=== PATIENT | female | born 1975 | race African-American/Black ===

== ENCOUNTER 2018-03-22 22:22 | Emergency (ER) | payer OTHER ==
[2018-03-23 00:08] LABS: Absolute Lymphocytes (CBC) 2.5 K/uL (0.7-4.9); Absolute Monocytes 0.8 K/uL (0.1-1.3); Basophils % 0.9 % (0-1.3); Eosinophils % 2.6 % (0-4.4); Hematocrit 37.8 % (36.0-45.0); Lymphocytes % 38.7 % (15.3-44.8); MCH 28.5 pg (27.0-35.0); MCV 88.9 fL (80-100); MPV 9.6 fL (7.6-11.3); Monocytes % 11.7 % (3.3-12.3); RBC Red Blood Cell Count 4.25 M/uL (3.86-4.86)
[2018-03-23 00:36] LABS: Bicarbonate 24 mEq/L (21-31); Glucose Level 104 mg/dL (65-120); Potassium 3.8 mEq/L (3.6-5.0); Sodium Level 138 mEq/L (135-145)
[2018-03-23 00:40] LABS: BUN Blood Urea Nitrogen 16 mg/dL (6-20); Uric Acid 4.7 mg/dL (2.6-8.0)
--- NOTE | 2018-03-23 02:12 | EDPHYS ---
Physician Documentation [facility] Name: Smitha Vasquez Age: 43 yrs Sex: Female : 1975 Arrival Date: 03/22/2018 Time: 22:23 Bed 20 Private MD: None, None ED Physician Simba Fatima HPI: 03/23 01:58 This 43 yrs old Black Female presents to ER via Ambulatory with complaints of Feet gs Swelling. 02:05 The complaints affect the right foot. Onset: The symptoms/episode began/occurred 1 gs week(s) ago, and became worse and became persistent. Modifying factors: the symptoms are aggravated by weight bearing. Associated signs and symptoms: Pertinent negatives: calf tenderness. Severity of symptoms: At their worst the symptoms were moderate, in the emergency department the symptoms are unchanged. The patient has not experienced similar symptoms in the past. The patient has not recently seen a physician. 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 - Social history:: Smoking status: Patient uses tobacco products, denies chronic smoking, but will smoke occasionally. - Ebola Screening: : No symptoms or risks identified at this time. ROS: 03/23 02:05 All other systems are negative. gs Exam: 02:05 Constitutional: The patient appears alert, awake. gs 02:05 Musculoskeletal/extremity: Extremities: noted in the dorsum of right foot: swelling, tenderness, ROM: no acute changes, Circulation is intact in all extremities. 02:05 Skin: Exam negative for 02:12 Musculoskeletal/extremity: DVT Exam: no pain, no swelling, no tenderness, negative gs Homans' sign noted on exam, no appreciated bluish discoloration, no erythema, no increased warmth, Calves: are non-tender, have equal circumference. Vital Signs: 03/22 22:46 BP 129 / 81; Pulse 77; Resp 18 S; Pulse Ox 98% on R/A; Weight 89.81 kg (R); Height 6 jd3 ft. 0 in. (182.88 cm) (R); Pain 7/10; 23:26 BP 108 / 61; Pulse 68; Resp 18 S; Pulse Ox 100% on R/A; Pain 7/10; d3 03/23 00:33 BP 120 / 80; Pulse 60; Resp 15 S; Pulse Ox 99% on R/A; Pain 7/10; jd3 01:38 BP 117 / 80; Pulse 64; Resp 18 S; Pulse Ox 98% on R/A; [facility] 03/22 22:46 Body Mass Index 26.85 (89.81 kg, 182.88 cm) [facility] MDM: 03/22 23:38 Patient medically screened. 03/23 02:05 Differential diagnosis: fracture, sprain, arthritis, gout, cellulitis. Data reviewed: vital signs, nurses notes. Response to treatment: the patient's symptoms have markedly improved after treatment, and as a result, I will discharge patient. ED course: skin is mild erythematous will cover for cellulitis, 3rd met fx to me is not a nutrient vessel. 03/22 23:38 Order name: CBC with Diff; Complete Time: 00:46 03/22 23:38 Order name: Basic Metabolic Panel; Complete Time: 00:46 03/22 23:38 Order name: Uric Acid; Complete Time: 00:46 03/22 23:38 Order name: Ankle Right 3 View XRAY 03/23 01:00 Order name: Foot Right 3 View XRAY 03/23 02:15 Order name: Post-op Orthopedic Shoe; Complete Time: 02:22 03/23 02:15 Order name: Olvin Wrap; Complete Time: 02:22 Administered Medications: No medications were administered Disposition: 03/23/18 02:12 Discharged to Home. Impression: Fracture of third metatarsal bone. - Condition is Stable. - Discharge Instructions: Metatarsal Fracture, Undisplaced. - Prescriptions for Keflex 500 mg Oral Capsule - take 1 capsule by ORAL route every 12 hours for 7 days; 14 capsule. - Medication Reconciliation Form, Thank You Letter, Antibiotic Education, Prescription Opioid Use form. - Follow up: Shorty Vides MD; When: 2 - 3 days; Reason: Re-evaluation by your physician. Signatures: Dispatcher [employer] EDNY Simba Fatima MD MD Booth, Grayson, RN RN jd3 Corrections: (The following items were deleted from the chart) 02:26 02:12 03/23/2018 02:12 Discharged to Home. Impression: Fracture of third metatarsal jd3 bone. Condition is Stable. Forms are Medication Reconciliation Form, Thank You Letter, Antibiotic Education, Prescription Opioid Use. Follow up: Dr. Shorty Vides; When: 2 - 3 days; Reason: Re-evaluation by your physician. gs
--- NOTE | 2018-03-23 02:12 | ER ---
Nurse's Notes [facility] Name: Smitha Vasquez Age: 43 yrs Sex: Female : 1975 Arrival Date: 03/22/2018 Time: 22:23 Bed 20 Private MD: None, None Diagnosis: Fracture of third metatarsal bone Presentation: 03/22 22:40 Presenting complaint: Patient states: "Both my legs/feet have been swelling since jd3 Sunday. Since then my left leg/foot swelling went down, bu my right leg/foot is still swollen and hurts to touch. I have history of a melanie placed in my left femur and I don't know if that has anything to do with it or not.". Transition of care: patient was not received from another setting of care. Onset of symptoms was March 20, 2018. Risk Assessment: Do you want to hurt yourself or someone else? Patient reports no desire to harm self or others. Initial Sepsis Screen: Does the patient meet any 2 criteria? No. Patient's initial sepsis screen is negative. Does the patient have a suspected source of infection? No. Patient's initial sepsis screen is negative. Care prior to arrival: None. 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 - Social history:: Smoking status: Patient uses tobacco products, denies chronic smoking, but will smoke occasionally. - Ebola Screening: : No symptoms or risks identified at this time. Screenin:50 Abuse screen: Denies threats or abuse. Nutritional screening: No deficits noted. jd3 Tuberculosis screening: No symptoms or risk factors identified. Fall Risk Gait- Normal/Bed Rest/Wheelchair (0 pts) Mental Status- Oriented to own ability (0 pts). Total Garnica Fall Scale indicates No Risk (0-24 pts). Assessment: 22:48 General: Appears in no apparent distress. uncomfortable, Behavior is calm, cooperative, jd3 appropriate for age. Pain: Complains of pain in right foot and right leg Pain currently is 7 out of 10 on a pain scale. Quality of pain is described as aching, pressure. Neuro: Level of Consciousness is awake, alert, obeys commands, Oriented to person, place, time, situation. Cardiovascular: Heart tones S1 S2 present Capillary refill < 3 seconds Patient's skin is warm and dry. Pulses are palpable in right dorsalis pedis artery and left dorsalis pedis artery. Respiratory: Airway is patent Respiratory effort is even, unlabored, Respiratory pattern is regular, symmetrical, Breath sounds are clear bilaterally. GI: Abdomen is round Bowel sounds present X 4 quads. Abd is soft and non tender X 4 quads. Patient currently denies nausea, vomiting. : No signs and/or symptoms were reported regarding the genitourinary system. EENT: No signs and/or symptoms were reported regarding the EENT system. Derm: Skin is intact, Skin is dry, Skin is normal, Skin temperature is warm. Musculoskeletal: Circulation, motion, and sensation intact. Range of motion: intact in all extremities, Swelling present in right foot and right leg. 23:27 Reassessment: Patient appears in no apparent distress at this time. Patient and/or jd3 family updated on plan of care and expected duration. Pain level reassessed. Patient is alert, oriented x 3, equal unlabored respirations, skin warm/dry/pink. waiting on provider to see pt. 03/23 00:34 Reassessment: Patient appears in no apparent distress at this time. No changes from jd3 previously documented assessment. Patient and/or family updated on plan of care and expected duration. Pain level reassessed. Patient is alert, oriented x 3, equal unlabored respirations, skin warm/dry/pink. 01:39 Reassessment: Patient appears in no apparent distress at this time. Patient and/or jd3 family updated on plan of care and expected duration. Pain level reassessed. Patient is alert, oriented x 3, equal unlabored respirations, skin warm/dry/pink. provider at bedside discussing plan of care. 02:24 Reassessment: Patient appears in no apparent distress at this time. Patient and/or jd3 family updated on plan of care and expected duration. Pain level reassessed. Patient is alert, oriented x 3, equal unlabored respirations, skin warm/dry/pink. pt reported understanding of discharge instructions, even and steady gait upon discharge. Patient states feeling better. Vital Signs: 03/22 22:46 BP 129 / 81; Pulse 77; Resp 18 S; Pulse Ox 98% on R/A; Weight 89.81 kg (R); Height 6 jd3 ft. 0 in. (182.88 cm) (R); Pain 7/10; 23:26 BP 108 / 61; Pulse 68; Resp 18 S; Pulse Ox 100% on R/A; Pain 7/10; jd3 03/23 00:33 BP 120 / 80; Pulse 60; Resp 15 S; Pulse Ox 99% on R/A; Pain 7/10; jd3 01:38 BP 117 / 80; Pulse 64; Resp 18 S; Pulse Ox 98% on R/A; jd3 03/22 22:46 Body Mass Index 26.85 (89.81 kg, 182.88 cm) jd3 ED Course: 03/22 22:23 Patient arrived in ED. ds1 22:31 Grayson Booth RN is Primary Nurse. jd3 22:45 Simba Fatima MD is Attending Physician. gs 22:45 Triage completed. jd3 22:47 None, None is Private Physician. ds1 22:48 Arm band placed on. jd3 22:51 Patient has correct armband on for positive identification. Placed in gown. Bed in low jd3 position. Call light in reach. Side rails up X 1. 23:52 X-ray completed. Portable x-ray completed in exam room. Patient tolerated procedure jw2 well. 23:53 Ankle Right 3 View XRAY In Process Unspecified. EDMS 03/23 01:21 X-ray completed. Portable x-ray completed in exam room. Patient tolerated procedure jw2 well. 01:22 Foot Right 3 View XRAY In Process Unspecified. EDMS 02:10 Shorty Vides MD is Referral Physician. gs 02:23 No provider procedures requiring assistance completed. Patient did not have IV access jd3 during this emergency room visit. 02:25 Olvin wrap to right food Ortho shoe applied to right foot. jd3 Administered Medications: No medications were administered Outcome: 02:12 Discharge ordered by . gs 02:24 Discharged to home ambulatory, with family. jd3 02:24 Condition: stable 02:24 Discharge instructions given to patient, Instructed on discharge instructions, follow up and referral plans. medication usage, Demonstrated understanding of instructions, follow-up care, medications, Prescriptions given X 1. 02:26 Patient left the ED. jd3 Signatures: Dispatcher [employer] EDNC TedNydia1 Rimma Mancilla2 Simba Fatima MD MD gs Davies, Jonathon, RN RN jd3
[2018-03-23 02:34] VITALS: BP 117/80; O2SAT 98
--- NOTE | 2018-03-23 10:25 | RAD REPORT ---
EXAM DESCRIPTION: RAD - Foot Right 3 View - 03/23/2018 1:22 am CLINICAL HISTORY: Swelling and pain. COMPARISON: None. FINDINGS: Right ankle and right foot, multiple projections are submitted. Moderate soft tissue swelling is noted about ankle and foot. No acute fracture or dislocation is seen .
--- NOTE | 2018-03-25 09:02 | RAD REPORT ---
EXAM DESCRIPTION: RAD - Ankle Right 3 View - 03/22/2018 11:53 pm CLINICAL HISTORY: Swelling and pain. COMPARISON: None. FINDINGS: Right ankle and right foot, multiple projections are submitted. Moderate soft tissue swelling is noted about ankle and foot. No acute fracture or dislocation is seen .
== END 2018-03-23 02:26 | disposition home or self-care (01) ==
LOC: ER 22:22
DX: S92.331A Displaced fracture of third metatarsal bone, right foot, initial encounter for closed fracture (principal); X58.XXXA Exposure to other specified factors, initial encounter; Y93.9 Activity, unspecified; Y92.9 Unspecified place or not applicable; Z72.0 Tobacco use
CPT/HCPCS: 36415; 80048; 84550; 85025; 99283

== ENCOUNTER 2021-01-13 11:31 | Emergency (ER) | payer OTHER ==
--- OUTSIDE RECORDS SUMMARY | 2021-01-13 11:34 | XMS REPORT | Continuity of Care Document ---
:1975 Author Organization [facility] t Address [address] [place] [address] [place] [address] Care Team Providers Name Role Phone Unavailable Unavailable Unavailable Problems This patient has no known problems. Allergies, Adverse Reactions, Alerts This patient has no known allergies or adverse reactions. Medications This patient has no known medications. Procedures This patient has no known procedures. Results This patient has no known results.
--- NOTE | 2021-01-13 12:41 | EDPHYS ---
Physician Documentation [facility] Name: Smitha Vasquez Age: 45 yrs Sex: Female : 1975 Arrival Date: 01/13/2021 Time: 11:33 Bed 13 Private MD: ED Physician Elver Puente HPI: 01/13 12:41 This 45 yrs old Black Female presents to ER via Ambulatory with complaints of Ear Pain, jr8 Fever. 12:01 The patient presents with pain, that is acute. The complaints affect the left ear. jr8 Onset: The symptoms/episode began/occurred suddenly, today. Associated signs and symptoms: Pertinent positives: fever, rhinorrhea. Patient reports sudden onset of ear pain that started this morning at work at 730 AM. She started fever with rhinorrhea which she treated with Aleve. Work sent her home to be tested for COVID. Pt denies feeling bad but can tell she has a fever. . Historical: - Allergies: 11:48 No Known Allergies; ss - Home Meds: 11:48 None [Active]; ss - PMHx: 11:48 None; ss - PSHx: 11:48 right leg sx with melanie placement; ss - Immunization history:: Adult Immunizations up to date. - Social history:: Smoking status: Patient denies any tobacco usage or history of. ROS: 12:03 Eyes: Negative for injury, pain, redness, and discharge, Cardiovascular: Negative for jr8 chest pain, palpitations, and edema, Respiratory: Negative for shortness of breath, cough, wheezing, and pleuritic chest pain, Abdomen/GI: Negative for abdominal pain, nausea, vomiting, diarrhea, and constipation, : Negative for injury, bleeding, discharge, and swelling, Skin: Negative for injury, rash, and discoloration, Neuro: Negative for headache, weakness, numbness, tingling, and seizure. 12:03 Constitutional: Positive for fever. 12:03 ENT: Positive for ear pain, nasal discharge, Negative for sinus congestion, sore throat, difficulty swallowing, hoarseness. Exam: 12:04 Chest/axilla: Normal chest wall appearance and motion. Nontender with no deformity. jr8 No lesions are appreciated. Cardiovascular: Regular rate and rhythm with a normal S1 and S2. No gallops, murmurs, or rubs. Normal PMI, no JVD. No pulse deficits. Respiratory: Lungs have equal breath sounds bilaterally, clear to auscultation and percussion. No rales, rhonchi or wheezes noted. No increased work of breathing, no retractions or nasal flaring. Abdomen/GI: Soft, non-tender, with normal bowel sounds. No distension or tympany. No guarding or rebound. No evidence of tenderness throughout. Skin: Warm, dry with normal turgor. Normal color with no rashes, no lesions, and no evidence of cellulitis. MS/ Extremity: Pulses equal, no cyanosis. Neurovascular intact. Full, normal range of motion. 12:04 ENT: External ear(s): are unremarkable, Ear canal(s): erythema, effusion on L side, TM's: erythema, fluid levels, Posterior pharynx: erythema, that is mild. 12:04 Skin: Appearance: normal except for affected area, Warm to touch. 12:41 Neck: External neck: is normal, Thyroid: appears normal, Trachea: is midline with no jr8 obvious abnormalities, ROM/movement: pain, is not appreciated, limited range of motion, is not appreciated, Meningeal signs: are not present, Kernig's sign is negative, Brudzinski's sign is negative, Lymph nodes: lymphadenopathy is appreciated, anterior cervical nodes. Vital Signs: 11:45 BP 131 / 78; Pulse 88; Resp 16; Temp 99.7(TE); Pulse Ox 100% on R/A; Weight 104.33 kg; ss Height 6 ft. 0 in. (182.88 cm); Pain 8/10; 12:59 BP 138 / 78; Pulse 84; Resp 15; Pulse Ox 100% ; jl7 11:45 Body Mass Index 31.19 (104.33 kg, 182.88 cm) ss MDM: 11:49 Patient medically screened. jr8 12:06 Data reviewed: vital signs, nurses notes, lab test result(s). Data interpreted: Cardiac jr8 monitor: rate is 88 beats/min. Data interpreted: certified residential medication aide: Pulse oximetry: on room air is 100 %. Interpretation: normal. Test interpretation: by ED physician or midlevel provider:. 12:39 Counseling: I had a detailed discussion with the patient and/or guardian regarding: the jr8 historical points, exam findings, and any diagnostic results supporting the discharge/admit diagnosis, lab results, the need for outpatient follow up, a family practitioner, to return to the emergency department if symptoms worsen or persist or if there are any questions or concerns that arise at home. 14:33 ED course: Attempted to call pt twice to give results for COVID positive. No answer and jr8 no VM is set up. Will attempt again later. . 01/13 12:08 Order name: Strep jr8 01/13 12:09 Order name: Group A Streptococcus Rapid Sc EDNY Administered Medications: 12:38 Drug: Tylenol 650 mg Route: PO; jl7 12:58 Follow up: Response: No adverse reaction jl7 Disposition: 18:27 Co-signature as Attending Physician, Elver Puente MD I agree with the assessment and tw4 plan of care. Disposition: 01/13/21 12:40 Discharged to Home. Impression: Acute lymphadenitis of face, head and neck, Acute suppurative otitis media. - Condition is Stable. - Discharge Instructions: Otitis Media, Adult, Lymphadenopathy. - Prescriptions for Augmentin 875- 125 mg Oral Tablet - take 1 tablet by ORAL route every 12 hours for 10 days; 20 tablet. - Medication Reconciliation Form, Thank You Letter, Antibiotic Education, Prescription Opioid Use, Work release form form. - Follow up: Private Physician; When: 7 - 10 days; Reason: Recheck today's complaints, Continuance of care, Re-evaluation by your physician. - Problem is new. - Symptoms have improved. Signatures: Dispatcher [facility] Christina Barron RN RN ss Roszak, Josh, PA PA jr8 Liborio York RN RN jl7 Wadley, Terrence, MD MD tw4 Corrections: (The following items were deleted from the chart) 12:40 12:06 Data reviewed: vital signs, nurses notes, jr8 jr8 13:00 12:40 01/13/2021 12:40 Discharged to Home. Impression: Acute lymphadenitis of face, jl7 head and neck; Acute suppurative otitis media. Condition is Stable. Forms are Medication Reconciliation Form, Thank You Letter, Antibiotic Education, Prescription Opioid Use. Follow up: Private Physician; When: 7 - 10 days; Reason: Recheck today's complaints, Continuance of care, Re-evaluation by your physician. Problem is new. Symptoms have improved. jr8
--- NOTE | 2021-01-13 12:41 | ER ---
Nurse's Notes [facility] Name: Smitha Vasquez Age: 45 yrs Sex: Female : 1975 Arrival Date: 01/13/2021 Time: 11:33 Bed 13 Private MD: Diagnosis: Acute lymphadenitis of face, head and neck;Acute suppurative otitis media Presentation: 01/13 11:45 Chief complaint: Patient states: L ear pain that began today. Pt states she began to ss feel warm, so they checked her temp at work and said it was "borderline" and to come be evaluated. Coronavirus screen: Client denies travel out of the [place] in the last 14 days. Ebola Screen: Patient denies exposure to infectious person. Patient denies travel to an Ebola-affected area in the 21 days before illness onset. Initial Sepsis Screen: Does the patient meet any 2 criteria? No. Patient's initial sepsis screen is negative. Does the patient have a suspected source of infection? No. Patient's initial sepsis screen is negative. Risk Assessment: Do you want to hurt yourself or someone else? Patient reports no desire to harm self or others. Onset of symptoms was January 13, 2021. 11:45 Method Of Arrival: Ambulatory ss 11:45 Acuity: GARRETT 5 ss Historical: - Allergies: 11:48 No Known Allergies; ss - Home Meds: 11:48 None [Active]; ss - PMHx: 11:48 None; ss - PSHx: 11:48 right leg sx with melanie placement; ss - Immunization history:: Adult Immunizations up to date. - Social history:: Smoking status: Patient denies any tobacco usage or history of. Screenin:45 Abuse screen: Denies threats or abuse. Denies injuries from another. Nutritional jl7 screening: No deficits noted. Tuberculosis screening: No symptoms or risk factors identified. Fall Risk None identified. Assessment: 11:45 General: Appears in no apparent distress. uncomfortable, Behavior is calm, cooperative, jl7 appropriate for age. Pain: Complains of pain in left ear Pain currently is 8 out of 10 on a pain scale. Pain began this morning Is continuous. Neuro: Level of Consciousness is awake, alert, obeys commands, Oriented to person, place, time, situation. Cardiovascular: Patient's skin is warm and dry. Respiratory: Airway is patent Respiratory effort is even, unlabored, Respiratory pattern is regular, symmetrical. EENT: Tympanic membrane reddened on left ear clear on right ear and left ear Ear canal clear on right ear and left ear. Derm: Skin is pink, warm \\T\\ dry. 12:45 Reassessment: Patient appears in no apparent distress at this time. No changes from jl7 previously documented assessment. Patient and/or family updated on plan of care and expected duration. Pain level reassessed. Patient is alert, oriented x 3, equal unlabored respirations, skin warm/dry/pink. Vital Signs: 11:45 BP 131 / 78; Pulse 88; Resp 16; Temp 99.7(TE); Pulse Ox 100% on R/A; Weight 104.33 kg; Height 6 ft. 0 in. (182.88 cm); Pain 8/10; 12:59 BP 138 / 78; Pulse 84; Resp 15; Pulse Ox 100% ; jl7 11:45 Body Mass Index 31.19 (104.33 kg, 182.88 cm) ED Course: 11:33 Patient arrived in ED. am2 11:44 Liborio York, RN is Primary Nurse. jl7 11:45 Patient has correct armband on for positive identification. Bed in low position. Call jl7 light in reach. Side rails up X 1. Pulse ox on. NIBP on. 11:46 Triage completed. 11:48 Arm band placed on right wrist. 11:49 Be Brambila PA is PHCP. jr8 11:49 Elver Puente MD is Attending Physician. jr8 12:16 Strep swab sent to lab. kj1 12:56 Strep Sent. jl7 12:58 No provider procedures requiring assistance completed. Patient did not have IV access jl7 during this emergency room visit. Administered Medications: 12:38 Drug: Tylenol 650 mg Route: PO; jl7 12:58 Follow up: Response: No adverse reaction jl7 Outcome: 12:40 Discharge ordered by . jr8 13:00 Patient left the ED. jl7 Signatures: Christina Barron RN RN Be Brambila PA PA jr8 Liborio York RN RN jl7 Kym Whiting am2 Gee, Lali kj1
[2021-01-13] MEDS ORDERED: ACETAMINOPHEN 325 MG TABLET ONE (12:49)
[2021-01-13 13:05] VITALS: TEMP 99.7; O2SAT 100
[2021-01-13 13:06] VITALS: BP 138/78
== END 2021-01-13 13:00 | disposition home or self-care (01) ==
LOC: ER 11:31
DX: U07.1 COVID-19 (principal); H66.002 Acute suppurative otitis media without spontaneous rupture of ear drum, left ear; L04.0 Acute lymphadenitis of face, head and neck
CPT/HCPCS: 87070; 87081; 99283; U0003

== ENCOUNTER 2021-03-31 08:18 | Emergency (ER) | payer OTHER ==
--- OUTSIDE RECORDS SUMMARY | 2021-03-31 08:22 | XMS REPORT | Continuity of Care Document ---
:1975 Author Organization [facility] t Address [address] [place] [address] [place] [id number] Care Team Providers Name Role Phone Unavailable Unavailable Unavailable Problems This patient has no known problems. Allergies, Adverse Reactions, Alerts This patient has no known allergies or adverse reactions. Medications This patient has no known medications. Procedures This patient has no known procedures. Results This patient has no known results.
--- NOTE | 2021-03-31 09:22 | ER ---
Nurse's Notes [facility] Name: Smitha Vasquez Age: 46 yrs Sex: Female : 1975 Arrival Date: 03/31/2021 Time: 08:20 Bed 25 Private MD: Diagnosis: Conjunctivitis-Allergic;Allergic contact dermatitis Presentation: 03/31 08:25 Chief complaint: Patient states: Drainage, itchy, burning to bilateral eyes since jl7 Sunday. Coronavirus screen: Client denies travel out of the [place] in the last 14 days. At this time, the client does not indicate any symptoms associated with coronavirus-19. Ebola Screen: No symptoms or risks identified at this time. Onset of symptoms was March 28, 2021. Care prior to arrival: None. 08:25 Method Of Arrival: Ambulatory jl7 08:25 Acuity: GARRETT 4 jl7 08:32 Initial Sepsis Screen: Does the patient meet any 2 criteria? No. Patient's initial jl7 sepsis screen is negative. Does the patient have a suspected source of infection? No. Patient's initial sepsis screen is negative. Risk Assessment: Do you want to hurt yourself or someone else? Patient reports no desire to harm self or others. Triage Assessment: 08:27 General: Appears in no apparent distress. uncomfortable, Behavior is calm, cooperative, jl7 appropriate for age. Pain: Complains of pain in right eye and left eye Pain currently is 8 out of 10 on a pain scale. 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 - Social history:: Smoking status: Patient denies any tobacco usage or history of. Screenin:31 Abuse screen: Denies threats or abuse. Denies injuries from another. Nutritional jl7 screening: No deficits noted. Tuberculosis screening: No symptoms or risk factors identified. Fall Risk None identified. Assessment: 08:30 General: Appears in no apparent distress. uncomfortable, Behavior is calm, cooperative, jl7 appropriate for age. Pain: Complains of pain in right eye and left eye Pain currently is 8 out of 10 on a pain scale. Neuro: Level of Consciousness is awake, alert, obeys commands, Oriented to person, place, time, situation. Cardiovascular: Patient's skin is warm and dry. Respiratory: Airway is patent Respiratory effort is even, unlabored, Respiratory pattern is regular, symmetrical. EENT: Eyes are tearing on right eye and left eye. Derm: Skin is dry, Skin is normal, Skin temperature is warm. 09:10 Reassessment: ANGELA Hubbard at bedside assessing patient at this time. Vital Signs: 08:25 BP 108 / 74; Pulse 87; Resp 17; Temp 98.5; Pulse Ox 97% on R/A; Weight 106.59 kg; jl7 Height 6 ft. 0 in. (182.88 cm); Pain 8/10; 08:25 Body Mass Index 31.87 (106.59 kg, 182.88 cm) jl7 ED Course: 08:20 Patient arrived in ED. as 08:26 Triage completed. jl7 08:27 Arm band placed on right wrist. jl7 08:30 Liborio York, DANIELLA is Primary Nurse. jl7 08:31 Patient has correct armband on for positive identification. Bed in low position. Call jl7 light in reach. Side rails up X 1. Pulse ox on. NIBP on. 08:31 Patient did not have IV access during this emergency room visit. jl7 08:36 Soy Loyd MD is Attending Physician. kdr 09:20 [facility]ila [facility] jr8 09:31 No provider procedures requiring assistance completed. ss Administered Medications: No medications were administered Outcome: 09:21 Discharge ordered by . jr8 09:31 Discharged to home ambulatory. ss 09:31 Condition: good 09:31 Discharge instructions given to patient, Instructed on discharge instructions, follow up and referral plans. Demonstrated understanding of instructions, follow-up care, Prescriptions given X 2. 09:31 Patient left the ED. Signatures: Soy Loyd MD MD kdr Martinez, Amelia as Smirch, Shelby, RN RN Be Brambila PA PA 8 Liborio York RN RN jl7
[2021-03-31 09:42] VITALS: BP 108/74; TEMP 98.5; O2SAT 97
--- NOTE | 2021-04-01 09:33 | EDPHYS ---
Physician Documentation [facility] Name: Smitha Vasquez Age: 46 yrs Sex: Female : 1975 Arrival Date: 03/31/2021 Time: 08:20 Bed 25 Private MD: ED Physician Soy Loyd HPI: 03/31 09:34 This 46 yrs old Black Female presents to ER via Ambulatory with complaints of Allergic jr8 Reaction, Drainage From Eye. 09:34 Onset: The symptoms/episode began/occurred gradually, 1 day(s) ago. Associated signs jr8 and symptoms: Pertinent positives: sneezing . Possible causes: The patient has no known obvious cause for the symptoms. Severity of symptoms: At their worst the symptoms were moderate in the emergency department the symptoms are unchanged. The patient has not experienced similar symptoms in the past. The patient has not recently seen a physician. Patient stated that symptoms started with watery and itchy right eye. Has since evolved to left eye and has been breaking out with itching papular rash to forehead. Denies recent exposure to anything . 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 - Social history:: Smoking status: Patient denies any tobacco usage or history of. ROS: 09:34 Constitutional: Negative for fever, chills, and weight loss, ENT: Negative for injury, jr8 pain, and discharge, Neck: Negative for injury, pain, and swelling, Cardiovascular: Negative for chest pain, palpitations, and edema, Respiratory: Negative for shortness of breath, cough, wheezing, and pleuritic chest pain, Abdomen/GI: Negative for abdominal pain, nausea, vomiting, diarrhea, and constipation, Back: Negative for injury and pain, MS/Extremity: Negative for injury and deformity, Neuro: Negative for headache, weakness, numbness, tingling, and seizure. 09:34 Eyes: Positive for itching, swelling, tearing, of the right eye and left eye. 09:34 Skin: Positive for rash, of the forehead. Exam: 09:37 Constitutional: This is a well developed, well nourished patient who is awake, alert, jr8 and in no acute distress. ENT: Nares patent. No nasal discharge, no septal abnormalities noted. Tympanic membranes are normal and external auditory canals are clear. Oropharynx with no redness, swelling, or masses, exudates, or evidence of obstruction, uvula midline. Mucous membranes moist. Neck: Trachea midline, no thyromegaly or masses palpated, and no cervical lymphadenopathy. Supple, full range of motion without nuchal rigidity, or vertebral point tenderness. No Meningismus. Cardiovascular: Regular rate and rhythm with a normal S1 and S2. No gallops, murmurs, or rubs. Normal PMI, no JVD. No pulse deficits. Respiratory: Lungs have equal breath sounds bilaterally, clear to auscultation and percussion. No rales, rhonchi or wheezes noted. No increased work of breathing, no retractions or nasal flaring. MS/ Extremity: Pulses equal, no cyanosis. Neurovascular intact. Full, normal range of motion. Neuro: Awake and alert, GCS 15, oriented to person, place, time, and situation. Cranial nerves II-XII grossly intact. Motor strength 5/5 in all extremities. Sensory grossly intact 09:37 Head/face: Noted is rash, papular non erythematous rash noted . 09:37 Eyes: Periorbital structures: swelling, that is mild, bilaterally, Pupils: equal, round, and reactive to light and accomodation, Extraocular movements: intact throughout, Conjunctiva: injected, in the right eye, tearing noted, bilaterally, Corneas: are normal, Sclera: no appreciated abnormality, Anterior chamber: normal, Lids and lashes: appear normal. Vital Signs: 08:25 BP 108 / 74; Pulse 87; Resp 17; Temp 98.5; Pulse Ox 97% on R/A; Weight 106.59 kg; jl7 Height 6 ft. 0 in. (182.88 cm); Pain 8/10; 08:25 Body Mass Index 31.87 (106.59 kg, 182.88 cm) jl7 MDM: 09:20 Patient medically screened. 8 09:37 Data reviewed: vital signs, nurses notes, and as a result, I will discharge patient. jr8 Data interpreted: Pulse oximetry: on room air is 97 %. Interpretation: normal. Counseling: I had a detailed discussion with the patient and/or guardian regarding: the historical points, exam findings, and any diagnostic results supporting the discharge/admit diagnosis, the need for outpatient follow up, an opthalmologist, a family practitioner, to return to the emergency department if symptoms worsen or persist or if there are any questions or concerns that arise at home. ED course: Discussed with patient that this appears to be an allergic reaction with the rash being present, sneezing, and then watery itchy eyes without significant injection or erythema of the conjunctiva. Would treat with patanol drops and steroids systemically at this time. If worse or not improving then would switch to bacterial drops. Patient good with this plan . Administered Medications: No medications were administered Disposition: 10:03 Co-signature as Attending Physician, Soy Loyd MD I agree with the assessment and kdr plan of care. Disposition: 03/31/21 09:21 Discharged to Home. Impression: Conjunctivitis - Allergic, Allergic contact dermatitis. - Condition is Stable. - Discharge Instructions: Allergic Conjunctivitis, Adult. - Prescriptions for Patanol 0.1 % Ophthalmic Drops - instill 1 drop by OPHTHALMIC route every 12 hours apply to both eyes every 12 hours; 1 bottle. Medrol (Robert) 4 mg Oral Tablets, Dose Pack - take 1 tablet by ORAL route as directed - follow package instructions; 1 packet. - Work release form, Medication Reconciliation Form, Thank You Letter, Antibiotic Education, Prescription Opioid Use form. - Follow up: Private Physician; When: 5 - 6 days; Reason: Recheck today's complaints, Continuance of care, Re-evaluation by your physician. - Problem is new. - Symptoms have improved. Signatures: Soy Loyd MD MD [facility] Christina Barron RN RN Be Hurtado PA PA jr8 Liborio York RN RN jl7 Corrections: (The following items were deleted from the chart) 09:31 09:21 03/31/2021 09:21 Discharged to Home. Impression: Conjunctivitis - Allergic; ss Allergic contact dermatitis. Condition is Stable. Forms are Medication Reconciliation Form, Thank You Letter, Antibiotic Education, Prescription Opioid Use. Follow up: Private Physician; When: 5 - 6 days; Reason: Recheck today's complaints, Continuance of care, Re-evaluation by your physician. Problem is new. Symptoms have improved. jr8
== END 2021-03-31 09:31 | disposition home or self-care (01) ==
LOC: ER 08:18
DX: H10.13 Acute atopic conjunctivitis, bilateral (principal); L23.9 Allergic contact dermatitis, unspecified cause
CPT/HCPCS: 99283

== ENCOUNTER 2022-06-19 18:00 | Emergency (ER) | payer OTHER, SELFPAY ==
--- OUTSIDE RECORDS SUMMARY | 2022-06-19 18:03 | XMS REPORT | Continuity of Care Document ---
:1975 Author Organization [facility] t Address [address] [place] [address] [place] [id number] Care Team Providers Name Role Phone Unavailable Unavailable Unavailable Problems This patient has no known problems. Allergies, Adverse Reactions, Alerts This patient has no known allergies or adverse reactions. Medications This patient has no known medications. Procedures This patient has no known procedures. Results This patient has no known results.
[2022-06-19] MEDS ORDERED: ACETAMINOPHEN 500 MG TAB ONE (18:47)
[2022-06-19] MEDS ORDERED: ONDANSETRON 4 MG (ODT) TAB ONE (18:47)
--- NOTE | 2022-06-19 20:51 | EDPHYS ---
Physician Documentation [facility] Name: Smitha Vasquez Age: 47 yrs Sex: Female : 1975 Arrival Date: 06/19/2022 Time: 18:14 Bed 12 Private MD: ED Physician Jeffery Baker HPI: 06/19 18:35 This 47 yrs old Black Female presents to ER via Ambulatory with complaints of Neck cp Swelling, Fever. 18:35 The patient presents with sore throat. cp 18:35 The patient describes throat pain as constant. Onset: The symptoms/episode cp began/occurred yesterday. Severity of symptoms: in the emergency department the symptoms are unchanged, despite home interventions. Associated signs and symptoms: Pertinent positives: earache, fever, headache, nausea, body aches, Pertinent negatives cough, diarrhea, vomiting. 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 - Social history:: Smoking status: Patient denies any tobacco usage or history of. Patient uses alcohol, occasionally. Patient/guardian denies using street drugs. ROS: 18:40 Constitutional: Positive for body aches, fever, Negative for poor PO intake. cp 18:40 Eyes: Negative for injury, pain, redness, and discharge. cp 18:40 ENT: Positive for ear pain, sore throat. 18:40 Cardiovascular: Negative for chest pain. 18:40 Respiratory: Negative for cough, shortness of breath, wheezing. 18:40 Abdomen/GI: Positive for nausea, Negative for abdominal pain, vomiting, diarrhea. 18:40 Skin: Negative for rash. 18:40 Neuro: Positive for headache, Negative for altered mental status, weakness. 18:40 All other systems are negative. Exam: 18:45 Constitutional: The patient appears in no acute distress, alert, awake, non-toxic, well cp developed, well nourished, febrile. 18:45 Head/Face: Normocephalic, atraumatic. cp 18:45 Eyes: Periorbital structures: appear normal, Conjunctiva: normal, no exudate, no injection, Sclera: no appreciated abnormality, Lids and lashes: appear normal, bilaterally. 18:45 ENT: External ear(s): are unremarkable, Ear canal(s): are normal, clear, TM's: dullness, bilaterally, Nose: is normal, Mouth: Lips: moist, Oral mucosa: pink and intact, moist, Posterior pharynx: Airway: no evidence of obstruction, patent, Tonsils: bilaterally enlarged, with erythema, with exudate, Uvula: midline, erythema, that is moderate. 18:45 Neck: ROM/movement: is normal, no meningismus, no nuchal rigidity, Lymph nodes: lymphadenopathy is appreciated, anterior cervical nodes. 18:45 Chest/axilla: Inspection: normal. 18:45 Cardiovascular: Rate: tachycardic, Rhythm: regular. 18:45 Respiratory: the patient does not display signs of respiratory distress, Respirations: normal, no use of accessory muscles, no retractions, labored breathing, is not present, Breath sounds: are clear throughout, no decreased breath sounds, no stridor, no wheezing. 18:45 Abdomen/GI: Inspection: abdomen appears normal, Palpation: abdomen is soft and non-tender, in all quadrants. Vital Signs: 18:19 BP 127 / 74; Pulse 117; Resp 20; Temp 100.8; Pulse Ox 98% ; Weight 104.33 kg; Height 6 kb3 ft. 0 in. (182.88 cm); Pain 10/10; 21:01 BP 108 / 84; Pulse 100; Resp 18; Temp 99.7; Pulse Ox 100% ; tw5 18:19 Body Mass Index 31.19 (104.33 kg, 182.88 cm) kb3 MDM: 18:35 Patient medically screened. cp 19:00 Differential diagnosis: influenza, mononucleosis, peritonsillar abscess pharyngitis, cp retropharyngeal abcess tonsillitis, uvulitis. 20:50 Data reviewed: vital signs, nurses notes, lab test result(s). cp 20:50 Counseling: I had a detailed discussion with the patient and/or guardian regarding: the cp historical points, exam findings, and any diagnostic results supporting the discharge/admit diagnosis, lab results, to return to the emergency department if symptoms worsen or persist or if there are any questions or concerns that arise at home. Response to treatment: the patient's symptoms have mildly improved after treatment, and as a result, I will discharge patient. ED course: VSS. Patient appears non-toxic. Will discharge to home for continued monitoring. 06/19 18:26 Order name: COVID-19 SARS RT PCR (Document "Date of Onset" if Symptomatic) kb3 06/19 18:26 Order name: Strep kb3 06/19 18:26 Order name: Influenza Screen (a \\T\\ B) kb3 Administered Medications: 18:39 Drug: Tylenol 1000 mg Route: PO; ss 21:00 Follow up: Response: No adverse reaction tw5 18:39 Drug: Zofran (Ondansetron) 4 mg Route: PO; ss 21:00 Follow up: Response: No adverse reaction tw5 21:00 Drug: Augmentin (Amoxicillin-Clavulanate) 875 mg Route: PO; tw5 21:06 Follow up: Response: No adverse reaction tw5 21:00 Drug: Decadron (dexamethasone) 10 mg Route: PO; tw5 21:06 Follow up: Response: No adverse reaction tw5 Disposition Summary: 06/19/22 20:51 Discharge Ordered Location: Home cp Problem: new cp Symptoms: have improved cp Condition: Stable cp Diagnosis - Acute streptococcal tonsillitis, unspecified cp Followup: cp - With: Private Physician - When: 2 - 3 days - Reason: Worsening of condition Discharge Instructions: - Discharge Summary Sheet cp - Strep Throat, Adult cp - Tonsillitis cp Forms: - Medication Reconciliation Form cp - Thank You Letter cp - Antibiotic Education cp - Prescription Opioid Use cp Prescriptions: - Augmentin 875-125 mg Oral Tablet - take 1 tablet by ORAL route every 12 hours for 10 days; 20 tablet; Refills: 0, cp Product Selection Permitted - Ibuprofen 800 mg Oral Tablet - take 1 tablet by ORAL route every 8 hours As needed take with food; 30 tablet; cp Refills: 0, Product Selection Permitted Signatures: Dispatcher [employer] Christina Da Silva RN RN ss Enmanuel Duval PA PA cp Wood, Tiffany tw5 Paty Baron RN RN kb3
--- NOTE | 2022-06-19 20:51 | ER ---
Nurse's Notes [facility] Name: Smitha Vasquez Age: 47 yrs Sex: Female : 1975 Arrival Date: 06/19/2022 Time: 18:14 Bed 12 Private MD: Diagnosis: Acute streptococcal tonsillitis, unspecified Presentation: 06/19 18:19 Chief complaint: Patient states: Pt reports sore throat, fatigue, fever, headache, body kb3 aches, nasal congestion that began yesterday. Coronavirus screen: Vaccine status: Patient reports receiving the 2nd dose of the covid vaccine. Client denies travel out of the [place] in the last 14 days. chills, congestion, fatigue, fever, headache, muscle pain, nausea, sore throat. Ebola Screen: Patient negative for fever greater than or equal to 101.5 degrees Fahrenheit, and additional compatible Ebola Virus Disease symptoms Patient denies exposure to infectious person. Patient denies travel to an Ebola-affected area in the 21 days before illness onset. No symptoms or risks identified at this time. Initial Sepsis Screen: Does the patient meet any 2 criteria? No. Patient's initial sepsis screen is negative. Does the patient have a suspected source of infection? No. Patient's initial sepsis screen is negative. Risk Assessment: Do you want to hurt yourself or someone else? Patient reports no desire to harm self or others. Onset of symptoms was June 19, 2022 at 12:00. 18:19 Method Of Arrival: Ambulatory kb3 18:19 Acuity: GARRETT 3 kb3 Triage Assessment: 18:21 General: Appears in no apparent distress. uncomfortable, Behavior is calm, cooperative. kb3 Pain: Complains of pain in head Pain does not radiate. Pain currently is 10 out of 10 on a pain scale. Quality of pain is described as aching, Pain began 1 day ago. 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 - Social history:: Smoking status: Patient denies any tobacco usage or history of. Patient uses alcohol, occasionally. Patient/guardian denies using street drugs. Screenin:01 Abuse screen: Denies threats or abuse. Denies injuries from another. Nutritional tw5 screening: No deficits noted. Tuberculosis screening: No symptoms or risk factors identified. Fall Risk None identified. Assessment: 21:01 Pain: Complains of pain in "I have this terrible headache." Pain currently is 8 out of tw5 10 on a pain scale. Neuro: Tobias Agitation-Sedation Scale (RASS): Level of Consciousness is awake, alert, confused, Oriented to person, place, time, situation, Vital Signs: 18:19 BP 127 / 74; Pulse 117; Resp 20; Temp 100.8; Pulse Ox 98% ; Weight 104.33 kg; Height 6 kb3 ft. 0 in. (182.88 cm); Pain 10/10; 21:01 BP 108 / 84; Pulse 100; Resp 18; Temp 99.7; Pulse Ox 100% ; tw5 18:19 Body Mass Index 31.19 (104.33 kg, 182.88 cm) kb3 ED Course: 18:14 Patient arrived in ED. rg4 18:15 Enmanuel Duval PA is PHCP. cp 18:15 Jeffery Baker MD is Attending Physician. cp 18:21 Triage completed. kb3 18:21 Arm band placed on right wrist. kb3 18:31 Influenza Screen (a \\T\\ B) Sent. kb3 18:31 Strep Sent. kb3 18:31 COVID-19 SARS RT PCR (Document "Date of Onset" if Symptomatic) Sent. kb3 18:32 Paty Baron, DANIELLA is Primary Nurse. kb3 21:01 Patient has correct armband on for positive identification. tw5 21:01 No provider procedures requiring assistance completed. Patient did not have IV access tw5 during this emergency room visit. Administered Medications: 18:39 Drug: Tylenol 1000 mg Route: PO; ss 21:00 Follow up: Response: No adverse reaction tw5 18:39 Drug: Zofran (Ondansetron) 4 mg Route: PO; ss 21:00 Follow up: Response: No adverse reaction tw5 21:00 Drug: Augmentin (Amoxicillin-Clavulanate) 875 mg Route: PO; 21:06 Follow up: Response: No adverse reaction 21:00 Drug: Decadron (dexamethasone) 10 mg Route: PO; tw 21:06 Follow up: Response: No adverse reaction Medication: 21:02 VIS not applicable for this client. Outcome: 20:51 Discharge ordered by . usha 21:01 Discharged to home ambulatory. tw 21: Condition: good 21:01 Discharge instructions given to patient, Instructed on discharge instructions, follow up and referral plans. Demonstrated understanding of instructions, follow-up care, medications, Prescriptions given X 2. 21:06 Patient left the ED. Signatures: Christina Barron, RN RN Enmanuel Damon PA PA cp Garcia, Rubi 4 Jyoti Reis tw5 Paty Baron RN RN kb3 Corrections: (The following items were deleted from the chart) 21:02 21:01 BP 108 / 84; Pulse 18bpm; Resp 100bpm; Pulse Ox 100%; Temp 99.7F; tw5 tw5
[2022-06-19] MEDS ORDERED: dexAMETHasone 10 MG/ML VIAL ONE (21:06)
[2022-06-19] MEDS ORDERED: AMOX/K CLAV 875 MG TAB ONE (21:06)
[2022-06-19 21:34] VITALS: BP 108/84; TEMP 99.7; O2SAT 100
== END 2022-06-19 21:06 | disposition home or self-care (01) ==
LOC: ER 18:00
DX: J03.00 Acute streptococcal tonsillitis, unspecified (principal); Z20.822 Contact with and (suspected) exposure to COVID-19
CPT/HCPCS: 87081; 87804; 99283; J1100; Q0162; U0003